=== PATIENT | female | born 1990 | race Two or more races ===

== ENCOUNTER 2017-11-11 22:48 | Emergency (ER) | payer MEDICAID, OTHER ==
--- NOTE | 2017-11-11 23:12 | EDM.PDOC ---
ED HPI GENERAL MEDICAL PROBLEM - General Chief Complaint: General Stated Complaint: SHARP PAIN BEHIND BOTH EAR ISSUES Time Seen by Provider: 11/11/17 22:59 - History of Present Illness INITIAL COMMENTS - FREE TEXT/NARRATIVE: HISTORY AND PHYSICAL: History of present illness: Patient is a 27--year-old female who presents with concern of cephalgia she also states she was having some white spots in a vaguely described visual disturbance also she denies trauma denies nausea vomiting numbness weakness or other complaints she denies known history of migraine headache Review of systems: As per history of present illness and below otherwise all systems reviewed and negative. Past medical history: As per history of present illness and as reviewed below otherwise noncontributory. Surgical history: As per history of present illness and as reviewed below otherwise noncontributory. Social history: No reported history of drug or alcohol abuse. Family history: As per history of present illness and as reviewed below otherwise noncontributory. Physical exam: HEENT: Atraumatic, normocephalic, pupils reactive, negative for conjunctival pallor or scleral icterus, mucous membranes moist, throat clear, neck supple, nontender, trachea midline. Lungs: Clear to auscultation, breath sounds equal bilaterally, chest nontender. Heart: S1S2, regular, negative for clicks, rubs, or JVD. Abdomen: Soft, nondistended, nontender. Negative for masses or hepatosplenomegaly. Negative for costovertebral tenderness. Pelvis: Stable nontender. Genitourinary: Deferred. Rectal: Deferred. Extremities: Atraumatic, negative for cords or calf pain. Neurovascular unremarkable. Neuro: Awake, alert, oriented. Cranial nerves II through XII unremarkable. Cerebellum unremarkable. Motor and sensory unremarkable throughout. Exam nonfocal. Diagnostics: CT brain visual acuity Therapeutics: None Impression: #1 medical screening exam Definitive disposition and diagnosis as appropriate pending reevaluation and review of above. - Related Data Allergies Allergy/AdvReac Type Severity Reaction Status Date / Time No Known Allergies Allergy Verified 11/11/17 23:04 Home Meds: Home Meds Mirtazapine 15 mg PO DAILY 11/11/17 [History] Naproxen 500 mg PO 11/11/17 [History] Nitrofurantoin Monohyd/M-Cryst [Macrobid 100 mg Capsule] 100 mg PO 11/11/17 [ History] metroNIDAZOLE [Metronidazole] 500 mg PO 11/11/17 [History] Past Medical History Psychiatric History: Reports: Depression Social & Family History - Tobacco Use Smoking Status *Q: Current Every Day Smoker Years of Tobacco use: 15 Packs/Tins Daily: 0.5 ED ROS GENERAL - Review of Systems Review Of Systems: ROS reveals no pertinent complaints other than HPI. ED EXAM, GENERAL - Physical Exam Exam: See Below (See dictation) Course - Vital Signs Last Recorded V/S: Last Vital Signs Temp 36.1 C 11/11/17 22:59 Pulse 73 11/11/17 22:59 Resp 20 11/11/17 22:59 BP 144/92 H 11/11/17 22:59 Pulse Ox 97 11/11/17 22:59 - Orders/Labs/Meds Orders: Active Orders 24 hr Category Date Time Status Head wo Cont [CT] Stat Exams 11/11/17 22:59 Ordered Departure - Departure Time of Disposition: 23:12 Disposition: Home, Self-Care 01 Condition: Good Clinical Impression: Encounter for medical screening examination - Discharge Information Referrals: PCP,None [Primary Care Provider] - Additional Instructions: The following information is given to patients seen in the emergency department who are being discharged to home. This information is to outline your options for follow-up care. We provide all patients seen in our emergency department with a follow-up referral. The need for follow-up, as well as the timing and circumstances, are variable depending upon the specifics of your emergency department visit. If you don't have a primary care physician on staff, we will provide you with a referral. We always advise you to contact your personal physician following an emergency department visit to inform them of the circumstance of the visit and for follow-up with them and/or the need for any referrals to a consulting specialist. The emergency department will also refer you to a specialist when appropriate. This referral assures that you have the opportunity for followup care with a specialist. All of these measure are taken in an effort to provide you with optimal care, which includes your followup. Under all circumstances we always encourage you to contact your private physician who remains a resource for coordinating your care. When calling for followup care, please make the office aware that this follow-up is from your recent emergency room visit. If for any reason you are refused follow-up, please contact the [facility] emergency department at and asked to speak to the emergency department charge nurse. ANGEL [facility] - Neurology Professional Building [address] [place] [address], [address] [place] [address] Follow-up private medical doctor call neurology about to schedule routine appointment Tylenol/Motrin as directed or return as needed as discussed[] - My Orders Last 24 Hours: My Active Orders 11/11/17 22:59 Head wo Cont [CT] Stat - Assessment/Plan Last 24 Hours: My Active Orders 11/11/17 22:59 Head wo Cont [CT] Stat
--- NOTE | 2017-11-13 20:34 | CT ---
EXAM DATE: 11/11/17 PATIENT'S AGE: 27 Patient: KORI SOTO Facility: [place], [place] Site . Site : 1990 Study: CT Head [id number] 12:02:23 AM Ordering Physician: Doctor Espana Final Report: INDICATION: Occipital pain, blurred vision TECHNIQUE: CT head without contrast. COMPARISON: None FINDINGS: CSF spaces: Within normal limits for age. Brain parenchyma: The davenport-white differentiation is normal. No sign of mass, hemorrhage, or midline shift. Skull base and calvarium: The visualized paranasal sinuses and mastoid air cells demonstrate no acute or significant findings. The visualized orbits are grossly unremarkable. No skull fractures. IMPRESSION: Unremarkable noncontrast head CT. Please note that all CT scans at this facility use dose modulation, iterative reconstruction, and/or weight-based dosing when appropriate to reduce radiation dose to as low as reasonably achievable. Dictated by Tahira Cook MD @ Nov 12 2017 12:06AM (Electronic Signature) Report Signed by Proxy. [email or web address]
== END 2017-11-12 00:17 | disposition home or self-care (01) ==
LOC: MW.ED 22:48
DX: Z13.5 Encounter for screening for eye and ear disorders (principal); R51 Headache; F17.210 Nicotine dependence, cigarettes, uncomplicated
CPT/HCPCS: 70450; 70450-26; 81025; 99283; 99285-25